=== PATIENT | female | born 1930 | race Caucasian/White ===

== ENCOUNTER → 2016-05-22 | Outpatient (CLI) | payer MEDICARE ==
[~2016-05-22] MED LIST: ACCUNEB 0.0.63 MG/3 INH; AMOXICILLIN500 M1 PO; ASPIRIN81 M1 PO; B COMPLEX1 TA2 PO; COUMADIN5 MG PO; COUMADIN7.5 M1 PO; FAMILY PHARMACY1 TAB PO; GLYBURIDE5 MG PO; HYDRODIURIL25 MG PO; IRON65 M1 PO; JANUVIA100 MG PO; K-DUR 1010 MEQ PO; K-Dur 20MEQ20 MEQ PO; LANOXIN0.125 MG PO; LASIX20 MG PO; LISINOPRIL20 MG PO; METFORMIN500 MG PO; METOPROLOL SR50 MG PO; STOOL SOFTENER100 MG PO; VITAMIN D1000 IU PO; VITAMIN D3400 IU PO
[2016-05-22 09:37] LABS: HEMOGLOBIN A1c 6.9 % (4.8-5.6)
[2016-05-22 09:49] LABS: ALBUMIN 3.6 gm/dl (3.1-4.5); BILIRUBIN, TOTAL 0.5 mg/dl (0.2-1.0); TOTAL PROTEIN 8.2 gm/dL (6.4-8.2)
== END | disposition home or self-care (01) ==
LOC: LAB 09:04
PROVIDERS: Internal Medicine
DX: E11.9 Type 2 diabetes mellitus without complications (principal); R53.83 Other fatigue

== ENCOUNTER → 2016-11-30 | Outpatient (CLI) | payer MEDICARE ==
[2016-11-30 10:37] LABS: ALBUMIN 3.9 gm/dl (3.1-4.5); BILIRUBIN, TOTAL 0.6 mg/dl (0.2-1.0); POTASSIUM 4.1 mmol/L (3.5-5.1); TOTAL PROTEIN 7.7 gm/dL (6.4-8.2)
== END | disposition home or self-care (01) ==
LOC: LAB 09:39
PROVIDERS: Internal Medicine
DX: E11.9 Type 2 diabetes mellitus without complications (principal); R53.83 Other fatigue

== ENCOUNTER 2018-08-26 00:21 | Inpatient (IN) | payer MEDICARE ==
[2018-08-26] VITALS (8 sets, daily range): BP systolic 116–165; BP diastolic 66–104
[~2018-08-26] VITALS: Ht 167.6 cm; Wt 83.5 kg
--- NOTE | ~2018-08-26 | PR ---
[place], [place] PROGRESS NOTE NAME: JUSTINE FUNK [facility] #: [id number] UNIT #: [id number] ROOM: [facility] DOCTOR: MAMADOU RUIZ MD,NATALEE BIRTHDATE: [birth year] DOS: 08/28/2018 PULMONARY PROGRESS NOTE SUBJECTIVE: The patient was noted comfortable at this time without any acute distress this morning of assessment, comfortable, resting on the bed. She has been using the Optiflow oxygen supplementation with nasal cannula, has not been noted any symptoms of fever or chills. No symptoms of coughing or any sputum expectoration. The patient was noted cough as nonproductive with a question of sputum expectoration. No symptoms of abdominal pain, nausea, vomiting, diarrhea, abdominal pain, hematemesis, or melena. Denies symptoms of hematochezia or headache. She has been using the BiPAP intermittently as well. OBJECTIVE: VITAL SIGNS: Normal temperature, respiratory rate 22-30, heart rate of 81-72, blood pressure 113/75 to 109/79. Intake was recorded as 1445 outake 554 mL were recorded. Pulse oxygen saturation recorded on the Optiflow of oxygen as 91-90% saturation. HEENT: Examination shows head was atraumatic. Eyes nonicterus. NECK: Supple. CARDIOVASCULAR: S1, S2 audible. LUNGS: Decreased breaths are noted. Crackles of the lungs bilaterally. ABDOMEN: Soft, flat, nontender, bowel sounds present. EXTREMITIES: Mild edema. MUSCULOSKELETAL: Without any acute deformity. CENTRAL NERVIOUS SYSTEM: Cranial nerves 2-12 intact. LABORATORY DATA: PTT was noted, therapeutic 67.6 this morning. CBC this morning, WBC count 20.2, hemoglobin 9.3, platelet count 343,000. BMP this morning as BUN 34, creatinine 1.51. Remaining electrolytes were normal. The chest x-ray obtain PA and lateral view today for the patient noted increasing pleural fluid noted with pulmonary infiltration in the lungs as compared with previous chest x-rays. IMPRESSION: 1. The patient who has been currently noted with acute respiratory failure remains persistent with hypoxia. 2. The patient's leukocytosis and acute anemia. 3. Fluid overload. Oral debility, weakness noted with elderly age. 4. Non-ST segment elevation myocardial infarction as well. PLAN OF TREATMENT: The patient was ordered a dose of Lasix, use of the BiPAP alternating with the Optiflow of oxygen would be continued. Monitor respiratory status, kidney function. Overall prognosis of the patient remains guarded. Assessment and management of the patient was discussed with patient's daughter. Continuation of current antibiotic, community-acquired pneumonia with changes need to be done. Other additional treatment changes will be ordered based on the progression of the illness. [place], [place] PROGRESS NOTE NAME: [facility] FUNK [facility] #[facility] [id number] UNIT #: [id number] ROOM: [facility] DOCTOR: NATALEE MAYER MD BIRTHDATE: [birth year] NATALEE CEDILLO MD CM:BRADYTRANS [id number] NATALEE RUIZ MD 09/09/18 0750 interface
--- NOTE | ~2018-08-26 | EKG ---
[place], [place] ELECTROCARDIOGRAM REPORT NAME: JUSTINE FUNK UNIT #: [id number] ROOM: [facility] DOCTOR: HEIDE DRAFT REPORT BIRTHDATE: [birth year] [facility] Test Date: 2018-08-26 Test Time: 03:32:49 Pat Name: JUSTINE FUNK Department: Room: 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
--- NOTE | ~2018-08-26 | EKG ---
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
--- NOTE | ~2018-08-26 | PR ---
[place], [place] PROGRESS NOTE NAME: JUSTINE FUNK [facility] #: [id number] UNIT #: [id number] ROOM: [facility]- DOCTOR: RUDY TANG,NII Florian BIRTHDATE: [birth year] DOS: 08/30/2018 SUBJECTIVE: The patient was seen and examined. She was sitting in a chair. She is awake and alert. She was on BiPAP. She remains critically ill. She is in no apparent distress. PHYSICAL EXAMINATION: VITAL SIGNS: Temperature afebrile, pulse 76, respiratory rate 18, blood pressure 111/68. GENERAL: She is awake, critically ill on BiPAP, sitting in a chair. HEENT: Shows no JVD. BiPAP mask is in place. LUNGS: Diminished breath sounds with no wheeze. HEART: S1, S2. No rub, thrill or gallop. ABDOMEN: Soft, nontender. EXTREMITIES: Showed no edema. LABORATORY DATA: Urine culture showed no growth. Hemoglobin 8.8, white count of 20.2, platelets 296. BUN 51, creatinine 1.75, sodium 139, potassium 4.8, CO2 of 24, calcium 8.2. ASSESSMENT AND PLAN: 1. Acute on chronic kidney disease. The patient has a stable creatinine level. 2. Acute kidney injury, likely prerenal. Continue ongoing supportive care. Avoid hypotension. Avoid nephrotoxic agents. Use diuretics as felt needed. Try to achieve a negative fluid balance. 3. Respiratory failure. The patient is on BiPAP. Being managed by Pulmonary. 4. Anemia. Transfuse as needed. Follow H and H. 5. Leukocytosis. The patient is on antibiotics. Follow cultures. 6. Deep venous thrombosis prophylaxis. She is on subcutaneous Lovenox. Suggest subcutaneous heparin in the setting of acute kidney injury. NII GRANT MD CM:PNTRANS [phone] NII GRANT MD 08/30/181651 interface
--- NOTE | ~2018-08-26 | PR ---
[place], [place] PROGRESS NOTE NAME: JUSTINE FUNK [facility] #: [id number] UNIT #: [id number] ROOM: [facility] DOCTOR: MAMADOU RUIZ MD,NATALEE BIRTHDATE: [birth year] DOS: 08/30/2018 PULMONARY PROGRESS NOTE SUBJECTIVE: She has been noted comfortable at this time, sitting on the bed this morning. The oxygen requirement noted decreased partially from yesterday. She was currently noted 60% Optiflow of oxygen supplementation with Venturi system. She has not been noted symptoms of chest pain. Cough has been noted without any sputum expectoration. OBJECTIVE: VITAL SIGNS: Recorded normal temperature, respiratory rate of 20, heart rate of 80, blood pressure of 112/60 at noon, and pulse oxygen 94% saturation noted at bedside. HEENT: Showed no acute change. NECK: Supple. Head was atraumatic. Eyes nonicterus. CARDIOVASCULAR SYSTEM: S1, S2 audible. LUNGS: The patient was noted without any wheezing. Crackles in the lungs were noted. Decreased breaths in the lower portion of the lungs bilaterally. ABDOMEN: Soft, nontender. Bowel sounds present. EXTREMITIES: Without any acute edema. LABORATORY DATA: CBC: WBC count elevated at 20.2, hemoglobin 8.0. BMP; BUN 51, creatinine 1.75. IMPRESSION: Acute pneumonia in combination with congestive heart failure, fluid overload, atrial fibrillation. PLAN OF MANAGEMENT: Continue the current plan of management, antibiotics, bronchodilators, oxygen supplementation and other therapies as in plan. The patient is receiving IV diuretics. Chest x-ray to monitor the patient p.r.n. Titrate Oxygen supplementation to maintain pulse ox 92% or greater. NATALEE CEDILLO MD CM:PNTRANS [phone] NATALEE RUIZ MD 08/30/182301 interface
--- NOTE | ~2018-08-26 | EKG ---
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
--- NOTE | ~2018-08-26 | PR ---
[place], [place] PROGRESS NOTE NAME: JUSTINE FUNK [facility] #: [id number] UNIT #: [id number] ROOM: [facility] DOCTOR: MAMADOU RUIZ MD,NATALEE BIRTHDATE: [birth year] DOS: 09/01/2018 SUBJECTIVE: The patient was noted comfortable on Optiflow oxygen supplementation this morning use. Denies symptoms of fever or chills. Continue Lasix intravenously. There were no symptoms of fever or chills. There was no sputum expectoration. Coughing was noted. PHYSICAL EXAMINATION: VITAL SIGNS: For the patient which were recorded showed normal temperature, respiratory rate 21, heart rate 87, blood pressure 111/79. Pulse oxygen saturation on the Optiflow oxygen of 45% was 95% saturation. HEENT: Head was atraumatic. Eyes nonicterus. NECK: Supple. LUNGS: Decreased breath sounds in the right lower lung. Scattered crackles. ABDOMEN: Soft, nontender. Bowel sounds present. LABORATORY DATA: No new change. CBC: WBC count 17.1. Platelet count was normal. IMPRESSION: Stable respiratory status, gradual resolution of the acute hypoxic respiratory failure with the pleural fluid on the right side and combination of pneumonia, congestive heart failure, and also atrial fibrillation. PLAN OF MANAGEMENT: The long-term acute care facility consultation could be obtained and family members are agreeable for that. In the meantime, continue the therapy, plan of management as in progress. Usual care. NATALEE CEDILLO MD CM:PNTRANS 1014 NATALEE RUIZ MD 09/02/18 005 interface
--- NOTE | ~2018-08-26 | PR ---
[place], [place] PROGRESS NOTE NAME: JUSTINE FUNK [facility] #: [id number] UNIT #: [id number] ROOM: [facility] DOCTOR: MAMADOU RUIZ MD,NATALEE BIRTHDATE: [birth year] DOS: 08/29/2018 PULMONARY PROGRESS NOTE SUBJECTIVE: The patient remains in the hospital. The patient is noted with increased oxygen requirement since yesterday from 50% oxygen, oxygen requirement is noted as 70%. She has been noted with some cough. There is no sputum expectoration. She has not been reported with any symptoms of fever or chills or any hemoptysis. She appears to be comfortable this morning of assessment otherwise, sitting on the bed. She remains afebrile as well. The antibiotic was continued. Denies symptoms of headache, diplopia, or pain of the lower extremity or edema. Remaining systems reviewed, limited but noted negative. OBJECTIVE: VITAL SIGNS: Normal temperature this morning, respirations 22, heart rate 75, blood pressure 111/64. Pulse oxygen saturation was recorded as 95% saturation. HEENT: Examination shows head is atraumatic. Eyes nonicterus. NECK: Supple. CARDIOVASCULAR: S1 and S2 audible. LUNGS: Noted without any wheezing or crackles at the present time. Breaths are noted decreased in lower portion of the lungs bilaterally. ABDOMEN: Soft, nontender. Bowel sounds present. EXTREMITIES: Without any acute edema. LABORATORY DATA: Chest x-ray done this morning was reviewed, bilateral pleural fluid is noted with pulmonary infiltration. LABORATORY DATA: CBC - WBC count 22.2, hemoglobin 9.8, platelet count normal. BMP this morning - BUN 46, creatinine 1.80, glucose 302. IMPRESSION: 1. The patient with acute hypoxic respiratory failure. The patient is still requiring significant amount of oxygen. 2. Leukocytosis as well. 3. Acute pneumonia with bilateral pleural fluid as well. 4. The patient with non-ST segment elevation myocardial infarction as well. PLAN OF MANAGEMENT: Discontinue Solu-Medrol at this time. Continuation of antibiotics and bronchodilators. Monitor any other culture results. Leukocytosis may be induced by the corticosteroids. Titrate the oxygen supplementation, maintain pulse ox at 92% or greater. Other therapy plan of management, care plan. Diuretics will be needed as well. Other additional treatment changes will be done based on the progression of her illness. [place], [place] PROGRESS NOTE NAME: JUSTINE FUNK UNIT #: [id number] ROOM: [facility] DOCTOR: MAMADOU RUIZ MD,NATALEE BIRTHDATE: [birth year] NATALEE CEDILLO MD CM:PNTRANS [id number] NATALEE RUIZ MD 08/30/18 0318 interface
--- NOTE | ~2018-08-26 | PR ---
[place], [place] PROGRESS NOTE NAME: JUSTINE FUNK [facility] #: [id number] UNIT #: [id number] ROOM: [facility] DOCTOR: NATALEE MAYER MD BIRTHDATE: [birth year] DOS: 08/27/2018 PULMONARY PROGRESS NOTE SUBJECTIVE: The patient has been noted comfortable at this time, resting on the bed. She appeared to be quite comfortable, has been using the Optiflow of oxygen, intermittent use of BiPAP, BiPAP has been used significantly yesterday. She has been getting the intravenous therapeutic heparin for the medical management of acute coronary syndrome with non-ST segment elevation myocardial infarction. Denies symptoms of chest pain. The coughing has been noted intermittent with minimal sputum expectoration. Denies symptoms of abdominal pain, nausea, vomiting, diarrhea, hematemesis, or melena. General weakness and fatigue was reported. The family members are present at bedside with the patient. OBJECTIVE: VITAL SIGNS: The vital signs of the patient, which have been recorded this morning shows normal temperature, respiratory rate of 19-18, heart rate of 75-92, blood pressure of 109/66. Pulse oxygen saturation recorded with Optiflow 50% oxygen is 92% and with the BiPAP is 93% saturation. HEENT: Examination shows head was atraumatic. Eyes nonicterus. NECK: Supple. CARDIOVASCULAR SYSTEM: S1, S2 audible. LUNGS: Still noted decreased breath sounds in the lungs bilaterally. Scattered crackles. ABDOMEN: Soft, nontender. Bowel sounds present. EXTREMITIES: No acute change. MUSCULOSKELETAL: Without any acute deformities. CENTRAL NERVOUS SYSTEM: General weakness and fatigue. LABORATORY DATA: BMP today: BUN is 26, creatinine is 1.41, and glucose is 200. The CBC that was done this morning, WBC count of 15.5, hemoglobin of 7.9, hematocrit of 26.1, and platelet count of 314,000. PTT was ranging between 42 and 38. IMPRESSION: 1. The patient has been currently noted severe acute hypoxemic respiratory failure with acute bilateral pneumonia. 2. Non-ST segment elevation myocardial infarction as well. 3. Bilateral pleural fluid as well. 4. Overall debility, multiple other medical problems. 5. The patient with cardiomyopathy, noted left ventricular ejection fraction 35%-40% with yesterday echocardiogram. PLAN OF TREATMENT: Continuation of the antibiotics, bronchodilators, BiPAP use, and intermittent oxygen supplementation during the day. PLAN OF MANAGEMENT: No changes in the plan of care at this time would be recommended. Current plan of management already in progress will be continued. Repeat a chest x-ray in the morning to reassess the progression of the [place], [place] PROGRESS NOTE NAME: JUSTINE FUNK [facility] #: [id number] UNIT #: [id number] ROOM: [facility] DOCTOR: NATALEE MAYER MD BIRTHDATE: [birth year] respiratory status. Usual care, other supportive plan of management, care plan and treatment, and other therapies. Usual medical management as previously in progress. NATALEE CEDILLO MD CM:PNTRANS [phone] NATALEE RUIZ MD 09/09/18 0748 interface
--- NOTE | ~2018-08-26 | PR ---
[place], [place] PROGRESS NOTE NAME: JUSTINE FUNK [facility] #: [id number] UNIT #: [id number] ROOM: [facility] DOCTOR: MAMADOU RUIZ MD,NATALEE BIRTHDATE: [birth year] DOS: 08/31/2018 SUBJECTIVE: The patient has been noted comfortable at this time, resting comfortably in the bed, using oxygen supplementation nasal cannula. Denies symptoms of fever or chills. Coughing has been reported without any sputum expectoration. Denies symptoms of fever or chills. Denies symptoms of hemoptysis. Denies pain of the lower extremities, hematemesis, melena, or hematochezia. Remaining systems were reviewed, they were noted all negative. PHYSICAL EXAMINATION: VITAL SIGNS: The patient has normal temperature, respiratory rate of 20-16, heart rate 90-85, and blood pressure 94/70 to 98/59. Pulse oxygen saturation recorded on 12 liter nasal cannula 95% saturation with the BiPAP 70% oxygen 97% saturation. HEENT: Examination shows head was atraumatic. Eyes nonicterus. NECK: Supple. CARDIOVASCULAR: S1, S2 is audible. LUNGS: The patient was noted without any wheezing or crackles. Breaths are noted, decreased in the lungs bilaterally. ABDOMEN: Soft, nontender. Bowel sounds present. EXTREMITIES: No new change. MUSCULOSKELETAL: Without acute deformities. CENTRAL NERVOUS SYSTEM: Cranial nerves 2-12 intact. MUSCULOSKELETAL: Without any acute deformities. LABORATORY DATA: Blood culture, which were done on 08/26/2018, reported no bacterial growth. CMP this morning, BUN 51, creatinine 1.79, glucose 126. Remaining electrolytes were normal. CBC this morning, WBC count of 17.4, hemoglobin 9.0, hematocrit 30.8, and platelet count 154,000. Ultrasound of the chest was also performed at the bedside noted with small moderate right pleural fluid and there were no pleural fluid noted on the left side. IMPRESSION: 1. The patient with acute congestive heart failure with ongoing pleural fluid gradually resolving. 2. Acute pneumonia with gradual improvement. 3. Severe acute hypoxemic respiratory failure noted stable. 4. Debility. 5. Acute kidney injury. PLAN: Continue diuretic, bronchodilators, oxygen supplementation. Observation of pleural fluid. No intervention will be needed. Continuation of other therapy, plan of management. Usual care. No changes in antibiotic will be necessary. Other supportive plan of management as in progress will be continued. Other additional treatment changes will be ordered based on the progression of the illness. [place], [place] PROGRESS NOTE NAME: JUSTINE FUNK [facility] UNIT #: [id number] ROOM: [facility] DOCTOR: NATALEE MAYER MD BIRTHDATE: [birth year] NATALEE CEDILLO MD CM:PNTRANS [phone] NATALEE RUIZ MD 09/01/18207 interface
--- NOTE | ~2018-08-26 | CON ---
[place], [place] REPORT OF CONSULTATION NAME: JUSTINE FUNK [facility] #: [id number] UNIT #: [id number] ROOM: [facility] DOCTOR: NATALEE MAYER MD BIRTHDATE: [birth year] DOS: 08/26/2018 PULMONARY CONSULTATION, EVALUATION, AND MANAGEMENT CONSULTATION REQUESTED BY: Hospitalist service. REASON FOR CONSULTATION: For assessment of acute respiratory failure. HISTORY OF PRESENT ILLNESS: This is an 88-year-old white female, who has been admitted to the hospital under the care of the hospitalist on 08/26/2018. The patient was brought to the hospital. The patient has been noted with symptoms of progressive symptoms of shortness of breath, general weakness, and fatigue. The symptoms have been noted gradually progressive and also noted with hypoxia per daughter, who assisted in the history of the patient since the patient is unable to give me any history. She has been noted with gradual increase in shortness of breath occurring at home. She has been using oxygen supplementation 2 liters by nasal cannula with the usual use of oxygen supplementation for past 3 years, but the pulse oxygen saturation was dropping per daughter. She was checking pulse ox at home. She has increased the oxygen supplementation to 4 liters nasal cannula. She has been noted further decline of the pulse oxygen saturation on 4 liters of oxygen supplementation, prompted the patient to come to the hospital for further assessment. She has been seen in the hospital, noted with acute hypoxic respiratory failure and being admitted to the hospital for further management. She has been starting the BiPAP that has been continued, requiring high amount of FiO2 supplementation up to 80% of oxygen. Chest x-ray was suggestive of possibility of congestive heart failure, pneumonia, and pleural effusions. This morning as the patient was seen in the Intensive Care Unit, she has been still noted tachypnea even with use of the BiPAP that has been continued this morning. She has not reported any symptoms of coughing, hemoptysis, or chest pain per daughter. PAST MEDICAL HISTORY: Documented on this admission: 1. Known history of chronic hypoxic respiratory failure. 2. Permanent atrial fibrillation. 3. Type 2 diabetes mellitus. 4. Essential hypertension. PAST SURGICAL HISTORY: Noted with: 1. Breast biopsy, which is benign. 2. Cholecystectomy. 3. Hysterectomy. HOME MEDICATIONS: Listed for this patient as: 1. Norvasc. 2. Aspirin. 3. Vitamin D. 4. Colace. 5. Lasix 20 mg daily. 6. Iron polysaccharide. 7. Lisinopril 20 mg daily. [place], [place] REPORT OF CONSULTATION NAME: JUSTINE FUNK UNIT #: [id number] ROOM: [facility] DOCTOR: MAMADOU RUIZ MD,NATALEE BIRTHDATE: [birth year] 8. Metformin 500 mg t.i.d. 9. Metoprolol succinate 50 mg p.o. b.i.d. 10. Multivitamin 1 p.o. daily. 11. Vitamin B complex. CURRENT MEDICATIONS: Current medications which has been administered on this admission were noted as metoprolol succinate orally, sliding insulin coverage, Imdur, multivitamin, vitamin D, aspirin, Mucinex, Solu-Medrol 40 mg IV b.i.d., heparin IV for the coronary artery syndrome, Zithromax, IV Rocephin as well as some other p.r.n. medications. DRUG ALLERGIES: No known drug allergies. SOCIAL HISTORY: The patient lives at home, currently . There was no past tobacco, alcohol, or illicit drug use. FAMILY HISTORY: The patient's father at age of 82 from complication of myocardial infarction. Mother at age of 82 from complication of atrial fibrillation and diabetes mellitus. REVIEW OF SYSTEMS: Much of the history could not be obtained since the patient is unable to give me any history. Per daughter, the patient has been reported general weakness, fatigue, inability to perform activities of daily living. PHYSICAL EXAMINATION: GENERAL: The patient is an 88-year-old elderly female patient, who has been currently noted on the BiPAP without any acute major distress except some tachypnea. VITAL SIGNS: The patient's height was recorded by the nursing staff as height of 5 feet 6 inches, weight of 174 pounds, and BMI of 28. Vital signs of the patient, which were recorded, temperature recorded as normal. The respiratory rate is 29, highest and lowest of 15, heart rate 84-103 with atrial fibrillation, blood pressure is 119/78-122/83. Pulse oxygen saturation on 80% oxygen is 96% saturation. HEENT: Head was atraumatic. Eyes nonicterus. NECK: Supple. CARDIOVASCULAR SYSTEM: S1, S2 is audible. LUNGS: Noted crackles at lung bases without any wheezing. ABDOMEN: Soft, nontender. Bowel sounds present. EXTREMITIES: Noted with no significant edema. MUSCULOSKELETAL: Without any acute deformity. CENTRAL NERVOUS SYSTEM: At this time, the patient was noted on the BiPAP, was not reported any focal neurologic deficit. Further examination and assessment could not be performed. LABORATORY DATA: Lactic acid on admission was 4.8, followup 2.2. The PT and PTT of the patient noted as normal PT and PTT. CBC on admission, WBC count is 13.8, hemoglobin is 9.8, and platelet count is 408,000. The CMP of the patient on admission, BUN is 17, creatinine is 1.37, glucose is 252, and sodium is 135. Remaining LFTs normal. Troponin was noted elevated at 0.52, second troponin is [place], [place] REPORT OF CONSULTATION NAME: JUSTINE FUNK UNIT #: [id number] ROOM: [facility] DOCTOR: NATALEE MAYER MD BIRTHDATE: [birth year] 0.[birth year] this morning at 06:00. The BMP of the patient, which was repeated this morning, BUN is 19, creatinine is 1.21, and glucose is 165. Arterial blood gas that was done on 08/26/2018, pH of 7.40, pCO2 of 44, and pO2 of 78 on 70% of oxygen. IMAGING DATA: The chest x-ray was noted with pleural fluid with basilar area of infiltration as well. Pleural fluid noted, greater on the right than the left side. CT scan of the chest that was done on 08/26/2018 shows small bilateral pleural fluid with some interstitial edema, infiltration, consolidation noted in lower lungs, air bronchogram including involvement of the lingula and the right middle lobe as well. IMPRESSION: 1. The patient has been currently admitted to the hospital with severe chronic hypoxic respiratory failure as a result of acute bilateral pneumonia, whether viral or bacterial at this time consideration will be done. The patient was also noted with acute sepsis related to that. Acute kidney injury related to that. 2. Uncontrolled hyperglycemia secondary to sepsis as well with history of type 2 diabetes mellitus. Weakness and fatigue with some change in mental status, related to all of the above. 3. The patient with abnormal troponin secondary to demand ischemia, rule out acute myocardial infarction as well. Non-ST segment elevation myocardial infarction would be considered. PLAN OF MANAGEMENT: The patient will be continue with current antibiotics at the present time with use of the Rocephin 2 gram IV daily and Zithromax for the Intensive Care Unit management coverage. Monitor culture results. Avoid any excessive fluid to prevent the fluid overload and/or congestive heart failure. BiPAP to be continued for the next 24 hours. The code status has been re-discussed with the patient's daughter. The patient remain Do Not Intubate and DNR Comfort Care-Arrest as well. There was no need of vasopressors at this time. Other therapy, plan of management, care plan, and additional treatment changes will be recommended based on progression of illness. Overall, prognosis remains guarded. Monitoring all of the other symptoms as well with other supportive plan of management and care. Thank you for allowing me to participate in the care of this patient. [place], [place] REPORT OF CONSULTATION NAME: JUSTINE FUNK Elizabeth UNIT #: [id number] ROOM: [facility] DOCTOR: NATALEE MAYER MD BIRTHDATE: [birth year] NATALEE CEDILLO MD CM:CONSTR:REPORT OF CONSULTATION 1610 09/09/18 0745 interface
[~2018-08-26 00:21] MED LIST changes: +DUOFER 28 MG TA28 MG PO; -IRON65 M1 PO; -VITAMIN D1000 IU PO; +VITAMIN D5000 UNIT PO
[2018-08-26 00:39] LABS: BASO # 0.1 10*3/uL (0.0-0.1); BASO % 0.4 % (0.0-1.0); EOS # 0.2 10*3/uL (0.0-0.4); EOS % 1.6 % (1.0-4.0); HEMATOCRIT 31.7 % (37.0-47.0); HEMOGLOBIN 9.8 g/dl (12.0-16.0); LYMPH # 3.1 10*3/uL (1.3-4.4); LYMPH % 22.7 % (27.0-41.0); MEAN CELL VOLUME 94.9 fl (81.0-99.0); MEAN CORPUSCULAR HGB 29.3 pg (27.0-31.0); MEAN CORPUSCULAR HGB CONC 30.9 g/dl (33.0-37.0); MEAN PLATELET VOLUME 9.9 fl (9.6-12.3); MONO % 7.3 % (3.0-9.0); NEUT # 9.3 10*3/uL (2.3-7.9); NEUT % 67.1 % (47.0-73.0); PLATELET COUNT AUTOMATED 408 10*3/uL (130-400); RED BLOOD COUNT 3.34 10*6/uL (4.10-5.10); RED CELL DISTRI WIDTH 16.3 % (0-14.5); WHITE BLOOD COUNT 13.8 10*3/uL (4.8-10.8)
--- NOTE | 2018-08-26 00:41 | NUR ---
DR. SHERIDAN NOTIFIED OF CRITICAL LACTIC ACID OF 4.8
[2018-08-26 00:51] LABS: ACT PARTIAL THROMBO TIME 27.1 SECONDS (20.8-31.5)
[2018-08-26 00:56] LABS: ALBUMIN 3.5 gm/dl (3.1-4.5); CREATININE 1.37 mg/dL (0.55-1.02); POTASSIUM 3.8 mmol/L (3.5-5.1)
[2018-08-26 00:57] LABS: TROPONIN I 0.02 ng/ml (<0.045)
[2018-08-26] MEDS ORDERED: AMLODIPINE BESY10 MG PO (01:09)
--- NOTE | 2018-08-26 03:11 | NUR ---
TROPONIN 0.052, DR SHERIDAN AWARE
--- NOTE | 2018-08-26 04:45 | NUR ---
A 88, admitted to ICCU, under the services of SPENCER Patterson DO with a diagnosis of CHF, SEPSIS. Chief complaint is SHORTNESS OF BREATH. Patient arrived via stretcher from ER. Monitor applied. Initial assessment completed. Vital signs taken and recorded. SPENCER PATTERSON DO notified of admission to the unit. Orders received. See assessment for past medical history, medications and allergies. Patient and/or family oriented to unit. [facility]U visitation policy reviewed. Clothing/patient valuable form completed. YULI HERNANDEZ
--- NOTE | 2018-08-26 05:07 | NUR ---
HOME MEDICATIONS UP TO DSATE PER LIST SENT WITH PATIENT AND FAMILY.
[2018-08-26 06:21] LABS: BASO % 0.2 % (0.0-1.0); EOS % 0.2 % (1.0-4.0); HEMATOCRIT 28.2 % (37.0-47.0); HEMOGLOBIN 8.7 g/dl (12.0-16.0); LYMPH # 0.9 10*3/uL (1.3-4.4); LYMPH % 7.2 % (27.0-41.0); MEAN CELL VOLUME 92.5 fl (81.0-99.0); MEAN CORPUSCULAR HGB 28.5 pg (27.0-31.0); MEAN CORPUSCULAR HGB CONC 30.9 g/dl (33.0-37.0); MONO # 0.3 10*3/uL (0.1-1.0); MONO % 2.2 % (3.0-9.0); NEUT # 11.6 10*3/uL (2.3-7.9); NEUT % 89.7 % (47.0-73.0); PLATELET COUNT AUTOMATED 342 10*3/uL (130-400); RED BLOOD COUNT 3.05 10*6/uL (4.10-5.10); RED CELL DISTRI WIDTH 16.2 % (0-14.5); WHITE BLOOD COUNT 12.9 10*3/uL (4.8-10.8)
[2018-08-26 06:49] LABS: CREATININE 1.21 mg/dL (0.55-1.02); POTASSIUM 3.9 mmol/L (3.5-5.1)
--- NOTE | 2018-08-26 06:58 | NUR ---
DR. LEIGH ANSWERING SERVICE NOTIFIED OF CONSULT. YULI HERNANDEZ RN
[2018-08-26 07:23] LABS: ABG BASE EXCESS 2.7 mmol/L (-2.0-2.0); ABG HCO3 27.4 mmol/l (22-26); ABG O2 SATURATION 95.8 % (95-97); ARTERIAL BLOOD GAS PCO2 44.6 mmHg (35-45); ARTERIAL BLOOD GAS PH 7.402 (7.35-7.45); ARTERIAL BLOOD GAS PO2 78.6 mmHg (80-90)
--- NOTE | 2018-08-26 07:23 | NUR ---
PT ON BIPAP AT THIS TIME. ABG DRAWN
--- NOTE | 2018-08-26 09:16 | NUR ---
0800 Drowsy, Dr. Armendariz in . Dr. Sánchez was notified of consult and ABG result. Remains on bi-pap at this time. 0900 Trialed on NC , unsuccessful w/ de-sat to 78% . Replaced to Bi-Pap. Dr. Awad here Heparin gtt started per order. Second IV added for abx and IVF.
--- NOTE | 2018-08-26 09:48 | NUR ---
PT ON BIPAP. TITRATED FIO2 TO 60%
--- NOTE | 2018-08-26 10:21 | NUR ---
Dr. aCrbajal in to [facility]. aware of elevated troponin.
--- NOTE | 2018-08-26 12:49 | NUR ---
PT REMAINS ON BIPAP AT THIS TIME
--- NOTE | 2018-08-26 14:01 | NUR ---
IVF dc'd . Dr. Sánchez in and recommendation is to remain on Bi-Pap. He spoke at length w/ pt. and family as to intubation and prognosis. Family agreeable to Maintain CCA w/ no ETT. lunch ordered.
--- NOTE | 2018-08-26 16:10 | NUR ---
took pt off bipap and placed on optiflow at 70Lm and fio2 60%. spo2 97% titrated to 60% fio2, spo2 95%
--- NOTE | 2018-08-26 17:03 | NUR ---
Awake and alert. Familyin to visit. took moderate amt lunch. declines dinner at this time.
--- NOTE | 2018-08-26 17:40 | NUR ---
TITRATED OPTIFLOW TO 50% AND 55LM. SPO2 95%
--- NOTE | 2018-08-26 19:36 | NUR ---
PT. HAS NOT PRODUCED ANY URINE SINCE ADMISSION. BLADDER SCANNED FOR 508CC'S OF URINE IN BLADDER DR. GALVAN NOTIFIED, ORDERS RECEIVED TO STRAIGHT CATH FOR URINE. STRAIGHT CATHED FOR 550CC'S OF DARK YELLOW URINE. WILL CONTINUE TO MONITOR.
--- NOTE | 2018-08-26 19:38 | NUR ---
PT'S HEP LOCKS IN LW AND DEMAR ASYMPT. HEPARIN DRIP CONTINUES VIA DEMAR LUNGS CLEAR BUT DIMINISHED BILAT, PULSE OX 93% ON 55L HI FLOW 02. ABDOMEN SOFT NONDISTENDED AND NORMO. NO PERIPHERAL EDEMA NOTED. RESP. EASY AND REG, NO DISTRESS. YULI HERNANDEZ RN
--- NOTE | 2018-08-26 19:41 | NUR ---
RIGHT EYE REDDENED, NOTED.
[2018-08-26 19:43] LABS: BILIRUBIN NEGATIVE (NEGATIVE); BLOOD NEGATIVE (NEGATIVE); CLARITY CLEAR (CLEAR); COLOR YELLOW (YELLOW); GLUCOSE 2+ (NEGATIVE); KETONE NEGATIVE (NEGATIVE); LEUKO ESTERASE TRACE (NEGATIVE); NITRITE POSITIVE (NEGATIVE); PH 5.5 (5.0-9.0); UROBILINOGEN 0.2 E.U./dl (0.2-1.0)
[2018-08-26 20:30] LABS: BACTERIA 1+; COARSE GRANULAR CAST 0-2; WBC 21-30 wbc/hpf (0-5)
--- NOTE | 2018-08-26 22:21 | NUR ---
PT. GIVEN RESTORIL ORDERED TO ASSIST WITH SLEEP PER PT REQUEST. PT. CURRENTLY SLEEPING ,RESTORIL EFFECTIVE.
[2018-08-27] VITALS: BP 115/73
[2018-08-27 04:00] VITALS: BP 116/73
[2018-08-27 04:22] LABS: BASO % 0.3 % (0.0-1.0); HEMATOCRIT 26.1 % (37.0-47.0); HEMOGLOBIN 7.9 g/dl (12.0-16.0); LYMPH # 1.4 10*3/uL (1.3-4.4); LYMPH % 9.1 % (27.0-41.0); MEAN CELL VOLUME 94.6 fl (81.0-99.0); MEAN CORPUSCULAR HGB 28.6 pg (27.0-31.0); MEAN CORPUSCULAR HGB CONC 30.3 g/dl (33.0-37.0); MEAN PLATELET VOLUME 10.5 fl (9.6-12.3); MONO # 0.6 10*3/uL (0.1-1.0); MONO % 3.7 % (3.0-9.0); NEUT # 13.3 10*3/uL (2.3-7.9); NEUT % 86.2 % (47.0-73.0); PLATELET COUNT AUTOMATED 314 10*3/uL (130-400); RED BLOOD COUNT 2.76 10*6/uL (4.10-5.10); RED CELL DISTRI WIDTH 16.4 % (0-14.5); WHITE BLOOD COUNT 15.5 10*3/uL (4.8-10.8)
[2018-08-27 04:35] LABS: CREATININE 1.41 mg/dL (0.55-1.02); POTASSIUM 4.4 mmol/L (3.5-5.1)
[2018-08-27 08:00] VITALS: BP 109/66
--- NOTE | 2018-08-27 08:00 | NUR ---
RESTING IN BED. DENIES ANY COMPLAINTS. HEPARIN GTT INFUSING AT 16 UNITS/12.6CC/HR. REMAINS ON OPTIFLOW AT 50% FIO2. LUNGS DIMINISHED BILATERALLY.
--- NOTE | 2018-08-27 11:30 | NUR ---
Fashion Design Professor in to talk to patient. Patient states lives at home alone with her family checking in on her. There are 12 basement steps and 3 steps in the home. Physician: Ellen Carbajal Pharmacy: [facility] Home health services: [facility] RN/PT currently and would like to continue those services upon discharge Patient's level of ADLs: MINIMAL ASSIST Patient has working utilities: yes DME: walker, cane Follow-up physician's appointment after d/c: will ne made by the hospitalist nurse director upon discharge Does patient want to access PORTAL?: no Discharge plan discussed with patient. She lives at home alone with her family checking in on her. She is independent in her ADLs and uses a walker or a cane for ambulation. Discussed home health care services and she currently has OV RN/PT and would like to resume those services upon discharge. When medically stable she will be discharged to home with the resumption of her [facility] services. HARLEY CABA
[2018-08-27 12:00] VITALS: BP 120/81
--- NOTE | 2018-08-27 14:32 | NUR ---
MEDICATED WITH 2 TYLENOL FOR COMPLAINTS OF A HEADACHE
--- NOTE | 2018-08-27 15:45 | NUR ---
1517 PLACED PATIENT ON BIPAP
[2018-08-27 16:00] VITALS: BP 107/89
--- NOTE | 2018-08-27 19:27 | NUR ---
SUPPORTIVE DAUGHTER AT BEDSIDE.
[2018-08-27 20:00] VITALS: BP 109/79
--- NOTE | 2018-08-27 20:00 | NUR ---
PT CHECKED FOR INCONTINENCE AND WAS INCONTINENT FOR MODERATE AMT OF URINE. YAIMA CARE DONE AND PT REPOSITIONED. HOB ELEVATED. BIPAP PLACED ON PT WITH PREVIOUS SETTINGS CONFIRMED OF 04/03 55% O2.
--- NOTE | 2018-08-27 21:11 | NUR ---
PT DOZING WHILE ON BIPAP.
--- NOTE | 2018-08-27 22:38 | NUR ---
PT TAKING PO MEDICATIONS AFTER RETURNED TO OPTIFLOW 65% O2. PULSE OX 97%.
[2018-08-28] VITALS: BP 129/84
--- NOTE | 2018-08-28 00:04 | NUR ---
RESTORIL GIVEN AT 2200 FOR SLEEP APPEARS TO BE EFFECTIVE. PT WITH BIPAP ON, PULSE OX 93%, EYES CLOSED, BODY RELAXED. HOB ELEVATED.
--- NOTE | 2018-08-28 02:51 | NUR ---
PT SLEEPING ON HER RT SIDE. BIPAP INTACT.
[2018-08-28 04:00] VITALS: BP 118/82
--- NOTE | 2018-08-28 04:17 | NUR ---
PT INCONTINENT OF LG AMT OF URINE. COMPLETE BATH AND BED LINEN CHANGE. REMAINS ON BIPAP.
[2018-08-28 04:47] LABS: BASO % 0.1 % (0.0-1.0); HEMOGLOBIN 9.3 g/dl (12.0-16.0); LYMPH # 2.8 10*3/uL (1.3-4.4); MEAN CELL VOLUME 95.7 fl (81.0-99.0); MEAN CORPUSCULAR HGB 28.7 pg (27.0-31.0); MEAN PLATELET VOLUME 10.8 fl (9.6-12.3); MONO # 1.2 10*3/uL (0.1-1.0); MONO % 5.9 % (3.0-9.0); NEUT # 15.9 10*3/uL (2.3-7.9); NEUT % 78.9 % (47.0-73.0); PLATELET COUNT AUTOMATED 343 10*3/uL (130-400); RED BLOOD COUNT 3.24 10*6/uL (4.10-5.10); RED CELL DISTRI WIDTH 16.4 % (0-14.5); WHITE BLOOD COUNT 20.2 10*3/uL (4.8-10.8)
[2018-08-28 05:02] LABS: CREATININE 1.51 mg/dL (0.55-1.02); POTASSIUM 4.9 mmol/L (3.5-5.1)
--- NOTE | 2018-08-28 06:54 | NUR ---
PT.IS RESTING QUIETLY, OPTIFLOW ON AT 70% WITH FLOW OF 55%, PULSE OX 92, HEART RATE 71.
[2018-08-28 08:00] VITALS: BP 113/75
--- NOTE | 2018-08-28 08:30 | NUR ---
Carpet Installation Specialist in to see patient. Discussed home hospital bed. Notified hospitalist nurse director of need for hospital bed documentation in a progress note. When medically stable she will be discharged to home with the resumption of her [facility] services.
--- NOTE | 2018-08-28 09:13 | NUR ---
PT. WAS ON A NRB AT 15 LITERS. PULSE OX WAS 92 TO 94%. PT. PLACED ON HIGH FLOW NC AT 15 LITERS TO EAT BREAKFAST, PULSE OX 90%, PT PULSE OX DECREASING TO 82% IN APPRX. 15 MINUTES. PT. PLACED ON OPTI FLOW AT 65% FIO2 AND 55 FLOW. PULSE OX 92 TO 94%. RN AT BEDSIDE FOR THIS CHANGE IN O2.
[2018-08-28 12:00] VITALS: BP 111/74
[2018-08-28 16:00] VITALS: BP 111/76
--- NOTE | 2018-08-28 19:12 | NUR ---
24 HR chart check completed.
[2018-08-28 20:00] VITALS: BP 118/73
--- NOTE | 2018-08-28 21:30 | NUR ---
PATIENT GIVEN RESTORIL TO HELP SLEEP WHILE ON BIPAP. WILL MONITOR AND REASSESS.
--- NOTE | 2018-08-28 23:30 | NUR ---
Patient placed on BiPAP 04/03, back up rate 8 Fio2 55%
[2018-08-29] VITALS: BP 118/78
--- NOTE | 2018-08-29 02:25 | NUR ---
PATIENT RESTING ON BIPAP, NO SIGNS OF DISTRESS. RESTORIL EFFECTIVE FOR SLEEP.
[2018-08-29 04:00] VITALS: BP 116/78; BP 117/68
--- NOTE | 2018-08-29 04:40 | NUR ---
PATIENT WEARING BIPAP, MOANING STATES SHE HAVE AB PAIN, FEELS LIKE SHE NEEDS TO HAVE A BM. SHE STATED SHE HAD A SMALL ONE YESTERDAY. PATIENT IN TEARS OF PAIN, PULLED MOM TO GIVEN, THEN PATIENT STATED SHE WAS NAUSEATED AND NEEDED TO VOMIT. NO MOM GIVEN. ZOFRAN GIVEN. PATIENT WANTING HER DAUGHTER, STATES SHE HAVING TOO MUCH PAIN AND ISNT GOING TO MAKE IT. DR. ANTONIO NOTIFIED, PATIENTS DAUGHTER CALLED, SHE WILL BE IN. DR'S ON THERE WAY TO UNIT. PATIENT VERY PALE, DIAPHORETIC. VS 120/68, HR 90, 40-RESP, 94% TEMP 97.0 T.
--- NOTE | 2018-08-29 04:53 | NUR ---
Patient placed back on Opti Flow at 55 L/M at 70% HR 85 SpO2 92%.
--- NOTE | 2018-08-29 05:22 | NUR ---
MORPHINE GIVEN FOR PAIN. WILL MONITOR.
[2018-08-29 05:37] LABS: CREATININE 1.8 mg/dL (0.55-1.02); POTASSIUM 4.7 mmol/L (3.5-5.1)
--- NOTE | 2018-08-29 06:22 | NUR ---
PATIENT DENIES PAIN AT THIS TIME, STATES SHE FEELS VERY WEAK. PATIENT INCONT OF LG AMT OF URINE, DULCOLAX SUPP GIVEN TO SERVICENOW ADMINISTRATOR IN BM. FAMILY AT BED SIDE.
[2018-08-29 06:38] LABS: HEMATOCRIT 33.2 % (37.0-47.0); HEMOGLOBIN 9.8 g/dl (12.0-16.0); MEAN CORPUSCULAR HGB 29.2 pg (27.0-31.0); MEAN CORPUSCULAR HGB CONC 29.5 g/dl (33.0-37.0); NUCLEATED RED BLOOD CELL 0.2 % (0.0-0.0); PLATELET COUNT AUTOMATED 352 10*3/uL (130-400); RED BLOOD COUNT 3.36 10*6/uL (4.10-5.10); RED CELL DISTRI WIDTH 16.8 % (0-14.5); WHITE BLOOD COUNT 22.2 10*3/uL (4.8-10.8)
[2018-08-29 06:42] LABS: MEAN CELL VOLUME 98.8 fl (81.0-99.0)
[2018-08-29 07:23] LABS: ACANTHOCYTES FEW; PLATELET SUFFICIENCY NORMAL (NORMAL); TOTAL CELLS COUNTED 100 #CELLS
--- NOTE | 2018-08-29 07:36 | NUR ---
PATIENT HAD LARGE BM. DULCOLAX EFFECTIVE.
[2018-08-29 08:00] VITALS: BP 111/64
--- NOTE | 2018-08-29 08:00 | NUR ---
ALERT AND ORIENTED, ON BEDPAN, RESP EASY AT REST, ON OPTIFLO NC FLUID BOLUS FROM NIGHTS HAS FINISHED, PT HAD MODERATE BM
--- NOTE | 2018-08-29 08:45 | NUR ---
DR CEDILLO IN TO SEE PT, REPEAT CXR DONE
--- NOTE | 2018-08-29 10:24 | NUR ---
DR PORRAS HAS BEEN UPDATED ON BOTH ELEVATED LACTIC ACID
--- NOTE | 2018-08-29 11:00 | NUR ---
Spoke to Reema at [facility] regarding hospital bed. Hospital bed is ready to be delivered is there anyone home to meet the haulpak driver. Informed patient lives alone but has family that checks in on her. Informed of unknown discharge. [facility] doesn't deliver on the weekends. Reema to call daughter, Kamla, and ask about delivery time.
--- NOTE | 2018-08-29 11:00 | NUR ---
BACK ON BIPAP, POX DROPPING TO 86-89 WHILE SLEEPING
--- NOTE | 2018-08-29 11:30 | NUR ---
Spoke to daughter, Kamla, regarding hospital bed delivery. Daughter would like to wait until Saturday. Reema at [facility] notified.
--- NOTE | 2018-08-29 11:39 | NUR ---
Faxed hospital bed documentation to [facility] at [phone].
--- NOTE | 2018-08-29 11:51 | NUR ---
Faxed resume home health care services to [facility].
[2018-08-29 12:00] VITALS: BP 120/68
[2018-08-29 12:07] LABS: BILIRUBIN NEGATIVE (NEGATIVE); BLOOD NEGATIVE (NEGATIVE); CLARITY SL CLOUDY (CLEAR); COLOR YELLOW (YELLOW); GLUCOSE NEGATIVE (NEGATIVE); KETONE NEGATIVE (NEGATIVE); LEUKO ESTERASE NEGATIVE (NEGATIVE); NITRITE NEGATIVE (NEGATIVE); PH 5.5 (5.0-9.0); SPECIFIC GRAVITY 1.025 (1.005-1.030); UROBILINOGEN 0.2 E.U./dl (0.2-1.0)
--- NOTE | 2018-08-29 12:09 | NUR ---
OLIEVIRA INSERTED PER POLICY UPON RENALS ORDER,TOLERATED WELL ALL URINE SPECIMEN SENT
[2018-08-29 13:20] LABS: URINE CHLORIDE, RANDOM < 10 mmol/L
[2018-08-29 13:26] LABS: BACTERIA 2+; FINE GRANULAR CAST 0-3
[2018-08-29 16:00] VITALS: BP 113/75
--- NOTE | 2018-08-29 18:59 | NUR ---
CHART CHECK COMPLETE.
[2018-08-29 20:00] VITALS: BP 106/73
--- NOTE | 2018-08-29 21:16 | NUR ---
PT'S DAUGHTER HAS GONE HOME. SHE IS NOW DOZING. PULSE OX REMAINS 93-95%.
--- NOTE | 2018-08-29 22:46 | NUR ---
RESTORIL GIVEN AT 2130 EFFECTIVE. PT SLEEPING.
--- NOTE | 2018-08-29 23:26 | NUR ---
Patient refuses NIV at this time
[2018-08-30] VITALS: BP 122/83
[2018-08-30 04:00] VITALS: BP 126/74
[2018-08-30 04:43] LABS: HEMATOCRIT 29.2 % (37.0-47.0); HEMOGLOBIN 8.8 g/dl (12.0-16.0); MEAN CORPUSCULAR HGB 28.9 pg (27.0-31.0); MEAN CORPUSCULAR HGB CONC 30.1 g/dl (33.0-37.0); MEAN PLATELET VOLUME 10.6 fl (9.6-12.3); NUCLEATED RED BLOOD CELL 0.2 10*3/uL (0.0-0.0); NUCLEATED RED BLOOD CELL 0.9 % (0.0-0.0); PLATELET COUNT AUTOMATED 296 10*3/uL (130-400); RED BLOOD COUNT 3.05 10*6/uL (4.10-5.10); RED CELL DISTRI WIDTH 16.5 % (0-14.5); WHITE BLOOD COUNT 20.2 10*3/uL (4.8-10.8)
[2018-08-30 04:44] LABS: MEAN CELL VOLUME 95.7 fl (81.0-99.0)
[2018-08-30 05:07] LABS: CREATININE 1.75 mg/dL (0.55-1.02); POTASSIUM 4.8 mmol/L (3.5-5.1)
[2018-08-30 05:15] LABS: PLATELET SUFFICIENCY NORMAL (NORMAL); POLYCHROMASIA SLIGHT; TOTAL CELLS COUNTED 100 #CELLS
--- NOTE | 2018-08-30 05:40 | NUR ---
PATIENT MOANING STATING HER BELLY HURTS AND SHE FEELS NAUSOUS ZOFRAN THEM GIVEN. I REMOVED A NORCO AND DULCOLAX FOR THE PAIN AND TO HELP HER HAVE BM AND SHE STATED THAT SHE NEEDED SOMETHING MORE THAT SHE CAN NOT SWALLOW PILLS RIGHT NOW. CALLED DOCTOR SUKHJINDER SAID HE WOULD PUT SOMETHING IN FOR HER.
[2018-08-30 08:00] VITALS: BP 111/68
--- NOTE | 2018-08-30 08:00 | NUR ---
PLACED UP INTO CHAIR WITH ASSIST TIMES TWO. LUNGS CLEAR BILATERALLY. NO EDEMA NOTED. PULSE OX 90-91% ON OPTIFLOW 60%. A-FIB ON HEART MONITOR, HR 90'S. OLIVEIRA CATHETER DRAINING CLEAR YELLOW URINE. BP 111/68. AFEBRILE
--- NOTE | 2018-08-30 10:30 | NUR ---
PLACED ON BI-PAP PER ORDER. REMAINS UP IN CHAIR
[2018-08-30 12:00] VITALS: BP 112/60
--- NOTE | 2018-08-30 12:35 | NUR ---
PATIENT TAKEN OFF OF BI-PAP, PLACED ON OPTI-FLOW @ 60%.
--- NOTE | 2018-08-30 13:36 | NUR ---
DR. CEDILLO HERE TO SEE PATIENT
[2018-08-30 16:00] VITALS: BP 115/68
--- NOTE | 2018-08-30 18:54 | NUR ---
CHART CHECK COMPLETE.
--- NOTE | 2018-08-30 19:12 | NUR ---
PT. REFUSED AERO. TX AND BIPAP, STATE SHE IS HAVING ALOT OF STOMACH PAIN AND JUST DOESN`T WANT TO BE BOTHERED WITH ANYTHING AT THIS TIME.
--- NOTE | 2018-08-30 19:31 | NUR ---
PT ASSISTED UP TO BSC. SUPPORTIVE DAUGHTER REMAINS AT BEDSIDE.
--- NOTE | 2018-08-30 19:51 | NUR ---
PT ASSISTED BACK TO RECLINER CHAIR. SHE HAD A VERY LARGE BROWN SOFTLY FORMED STOOL. STATES FEELS "SO MUCH BETTER!" CALL LIGHT IN REACH. ASSESSMENT COMPLETED. VSS. PULSE OX 98% ON OPTIFLOW.
[2018-08-30 20:00] VITALS: BP 96/64
--- NOTE | 2018-08-30 20:12 | NUR ---
PT ASSISTED BACK TO BED AND TO POSITION OF COMFORT. PT STATES SOME DISCOMFORT IN CHEST WALL ARM PIT AREA BILATERALLY. TYLENOL OFFERED/REQUESTED/GIVEN ORDERED.
--- NOTE | 2018-08-30 20:37 | NUR ---
PT DOZING. HOB ELEVATED. PILLOWS UNDER ARMS AND HEELS OFF OF BED. IN VIEW OF ICU STAFF. BODY RELAXED. RR 16/MIN. CALL LIGHT AND BELONGINGS IN REACH.
--- NOTE | 2018-08-30 21:56 | NUR ---
PT INGESTED PO PM MEDICATIONS WITHOUT DIFFICULTY.
--- NOTE | 2018-08-30 22:08 | NUR ---
PT TELLS RESP DEPT THAT SHE DOESN'T WANT BIPAP ON UNTIL AROUND MIDNIGHT.
--- NOTE | 2018-08-30 22:35 | NUR ---
PT ON BIPAP.
--- NOTE | 2018-08-30 23:10 | NUR ---
TYLENOL FOR DISCOMFORT NOTED EARLIER AND RESTORIL FOR SLEEP AT 2130 EFFECTIVE. PT SLEEPING...TOLERATING BIPAP. PULSE OX 93-95% WITH RR 14/MIN.
[2018-08-31] VITALS: BP 94/64
--- NOTE | 2018-08-31 01:04 | NUR ---
ASSISTED UP TO BSC PER PT REQUEST.
--- NOTE | 2018-08-31 01:15 | NUR ---
ASSISTED BACK TO BED. PT HAD A MODERATE AMT OF BROWN MUSHY STOOL.
[2018-08-31 04:00] VITALS: BP 100/57
--- NOTE | 2018-08-31 04:24 | NUR ---
IV IN RAN PAINFUL AND REMOVED. NEW #24 STARTED IN RT FOREARM PER POLICY. PT DENIES DISCOMFORT AND SITE ASYMTPOMATIC DURING ANTIBIOTIC INFUSION.
[2018-08-31 05:14] LABS: ALBUMIN 2.8 gm/dl (3.1-4.5); CREATININE 1.79 mg/dL (0.55-1.02); PHOSPHOROUS 4.7 mg/dL (2.5-4.9); POTASSIUM 4.6 mmol/L (3.5-5.1); TOTAL PROTEIN 6.5 gm/dL (6.4-8.2)
[2018-08-31 05:52] LABS: HEMATOCRIT 30.8 % (37.0-47.0); HEMOGLOBIN 9.2 g/dl (12.0-16.0); MEAN CELL VOLUME 97.2 fl (81.0-99.0); MEAN CORPUSCULAR HGB CONC 29.9 g/dl (33.0-37.0); MEAN PLATELET VOLUME 11.3 fl (9.6-12.3); NUCLEATED RED BLOOD CELL 0.1 10*3/uL (0.0-0.0); NUCLEATED RED BLOOD CELL 0.8 % (0.0-0.0); PLATELET COUNT AUTOMATED 254 10*3/uL (130-400); RED BLOOD COUNT 3.17 10*6/uL (4.10-5.10); RED CELL DISTRI WIDTH 16.9 % (0-14.5); WHITE BLOOD COUNT 17.4 10*3/uL (4.8-10.8)
--- NOTE | 2018-08-31 06:13 | NUR ---
PT WORE BIPAP FROM 2229 TO 344. SHE IS DOZING WHILE ON OPTIFLOW WITH A CURRENT PULSE OX OF 98% AND RR 16/MIN.
[2018-08-31 06:26] LABS: ACANTHOCYTES FEW; POLYCHROMASIA SLIGHT; TOTAL CELLS COUNTED 100 #CELLS
[2018-08-31 06:27] LABS: PLATELET SUFFICIENCY NORMAL (NORMAL)
--- NOTE | 2018-08-31 07:30 | NUR ---
Pt is resting on Opti-flow at 94%. Pt is on 45L and 70%.
[2018-08-31 08:00] VITALS: BP 94/70
--- NOTE | 2018-08-31 08:00 | NUR ---
PLACED UP INTO CHAIR WITH ASSIST TIMES ONE. TOLERATED WELL. DR. CASTRO HERE TO SEE PATIENT. UPDATED ON LABS FROM THIS AM. NO VOICED COMPLAINTS
--- NOTE | 2018-08-31 09:00 | NUR ---
TAKEN OFF OF OPTI-FLOW AND PLACED ON HIGH FLOW NASAL CANNULA 6L. O2 TITRATED UP TO 12L TO KEEP PULSE OX 92%. DENIES ANY SHORTNESS OF BREATH.
--- NOTE | 2018-08-31 11:00 | NUR ---
Pt is resting in a chair on a 12L HFNC at 94%.
[2018-08-31 12:00] VITALS: BP 98/59
--- NOTE | 2018-08-31 14:00 | NUR ---
PLACED BACK TO BED PER REQUEST.
--- NOTE | 2018-08-31 15:00 | NUR ---
Pt is still resting comfortably in bed on 12L HFNC. SpO2 is 93%
[2018-08-31 16:00] VITALS: BP 106/66
--- NOTE | 2018-08-31 19:39 | NUR ---
PT. UP IN CHAIR BACK TO BED WITH ONE ASSIST. HEP LOCK IN RH ASYMPT. LUNGS DIMINISHED BUT CLEAR BILAT, PULSE OX 84% ON 12L HIGH FLOW CHANGED TO OPTI-FLOW 45L/60%, PULSE OX 96% NOW CURRENTLY. ABDOMEN SOFT NONDISTENDED AND NORMO. NO PERIPHERAL EDEMA NOTED. RESP. EASY AND REG, NO DISTRESS. WATCHING TV AT THIS TIME. YULI HERNANDEZ RN
[2018-08-31 20:00] VITALS: BP 105/64
[2018-09-01] VITALS: BP 123/83
[2018-09-01 04:00] VITALS: BP 115/81
[2018-09-01 05:16] LABS: ALBUMIN 2.7 gm/dl (3.1-4.5); CREATININE 1.53 mg/dL (0.55-1.02); POTASSIUM 4.3 mmol/L (3.5-5.1); TOTAL PROTEIN 6.4 gm/dL (6.4-8.2)
[2018-09-01 06:12] LABS: HEMATOCRIT 30.3 % (37.0-47.0); MEAN CELL VOLUME 96.8 fl (81.0-99.0); MEAN CORPUSCULAR HGB 28.8 pg (27.0-31.0); MEAN CORPUSCULAR HGB CONC 29.7 g/dl (33.0-37.0); NUCLEATED RED BLOOD CELL 0.1 10*3/uL (0.0-0.0); NUCLEATED RED BLOOD CELL 0.3 % (0.0-0.0); PLATELET COUNT AUTOMATED 269 10*3/uL (130-400); RED BLOOD COUNT 3.13 10*6/uL (4.10-5.10); RED CELL DISTRI WIDTH 17.2 % (0-14.5); WHITE BLOOD COUNT 17.1 10*3/uL (4.8-10.8)
[2018-09-01 07:36] LABS: PLATELET SUFFICIENCY NORMAL (NORMAL); TOTAL CELLS COUNTED 100 #CELLS
[2018-09-01 08:00] VITALS: BP 111/79
--- NOTE | 2018-09-01 08:00 | NUR ---
AM CARE DONE, PT ALERT AND ORIENTED, PLEASANT, SKIN INTACT, ON OPTIFLO NC AT 45 L UP TO RECLINER AFTER BATH, THEN TO RAD FOR CXR
--- NOTE | 2018-09-01 10:30 | NUR ---
Musical Instruments Assembler in to see patient. Discussed LTAC and patient and daughter who is at the bedside are agreeable. When provided with a list of facilities they chose [facility] as it is closer to their house in [place]. search planner notified.
--- NOTE | 2018-09-01 11:25 | NUR ---
PLACED BACK ON BIPAP AFTER BREAKFAST
[2018-09-01 12:00] VITALS: BP 116/86
--- NOTE | 2018-09-01 12:28 | NUR ---
patient requested referral to [facility] in [place]. Attempted to contact [facility], faxed referral. Waiting on return call, review/acceptance.
--- NOTE | 2018-09-01 15:27 | NUR ---
REMAINS SITTING UP IN RECLINER, HIGH FLOW NC AT 10 L
[2018-09-01] MEDS ORDERED: ATORVASTATIN CA40 M1 PO (15:55)
[2018-09-01] MEDS ORDERED: METOPROLOL SUCC25 M2 PO (15:56)
[2018-09-01] MEDS ORDERED: APRESOLINE10 MG PO (15:56)
[2018-09-01] MEDS ORDERED: Humalog SQ (15:56)
[2018-09-01] MEDS ORDERED: IMDUR SA30 MG PO (15:56)
[2018-09-01] MEDS ORDERED: FUROSEMIDE40 MG PO (15:56)
[2018-09-01 16:00] VITALS: BP 113/86
--- NOTE | 2018-09-01 16:25 | NUR ---
TRANSPORTATION FOR PT SET UP WITH [facility] AT 6PM. ICU NOTIFIED.
--- NOTE | 2018-09-01 18:24 | NUR ---
DC TO [facility]
--- NOTE | 2018-09-01 18:25 | NUR ---
DTR HAS TAKEN HOME ALL BELONGINGS, EXCEPT TEETH WHICH PT HAS IN HER MOUTH
== END 2018-09-01 18:24 | DRG 871 ==
LOC: ED 00:21 → EDHOLD 04:05 → ICCU 04:05
PROVIDERS: Family Medicine; Internal Medicine; Internal Medicine Nephrology; Student in an Organized Health Care Education/Training Program; ADMIT Internal Medicine
PROC: 5A09357 Assistance with Respiratory Ventilation, Less than 24 Consecutive Hours, Continuous Positive Airway Pressure (ICD-10-PCS; principal; 2018-08-26)
PROC: 5A09357 Assistance with Respiratory Ventilation, Less than 24 Consecutive Hours, Continuous Positive Airway Pressure (ICD-10-PCS; 2018-08-27)
PROC: 5A09357 Assistance with Respiratory Ventilation, Less than 24 Consecutive Hours, Continuous Positive Airway Pressure (ICD-10-PCS; 2018-08-28)
PROC: 5A09357 Assistance with Respiratory Ventilation, Less than 24 Consecutive Hours, Continuous Positive Airway Pressure (ICD-10-PCS; 2018-08-29)
PROC: 5A09357 Assistance with Respiratory Ventilation, Less than 24 Consecutive Hours, Continuous Positive Airway Pressure (ICD-10-PCS; 2018-08-31)
PROC: 5A09357 Assistance with Respiratory Ventilation, Less than 24 Consecutive Hours, Continuous Positive Airway Pressure (ICD-10-PCS; 2018-09-01)
DX: A41.9 Sepsis, unspecified organism (principal); J18.9 Pneumonia, unspecified organism; N17.0 Acute kidney failure with tubular necrosis; R65.21 Severe sepsis with septic shock; I50.41 Acute combined systolic (congestive) and diastolic (congestive) heart failure; J96.21 Acute and chronic respiratory failure with hypoxia; I21.4 Non-ST elevation (NSTEMI) myocardial infarction; E44.0 Moderate protein-calorie malnutrition; E87.1 Hypo-osmolality and hyponatremia; I13.0 Hypertensive heart and chronic kidney disease with heart failure and stage 1 through stage 4 chronic kidney disease, or unspecified chronic kidney disease; I42.9 Cardiomyopathy, unspecified; N39.0 Urinary tract infection, site not specified; D64.9 Anemia, unspecified; R10.30 Lower abdominal pain, unspecified; K59.00 Constipation, unspecified; I27.20 Pulmonary hypertension, unspecified; I34.0 Nonrheumatic mitral (valve) insufficiency; R74.0 Nonspecific elevation of levels of transaminase and lactic acid dehydrogenase [LDH]; Z51.5 Encounter for palliative care; Z66 Do not resuscitate; N18.3 Chronic kidney disease, stage 3 (moderate); E83.41 Hypermagnesemia; I48.2 Chronic atrial fibrillation; E11.65 Type 2 diabetes mellitus with hyperglycemia; Z79.4 Long term (current) use of insulin; Z91.048 Other nonmedicinal substance allergy status; Z90.49 Acquired absence of other specified parts of digestive tract; Z90.710 Acquired absence of both cervix and uterus; Z82.49 Family history of ischemic heart disease and other diseases of the circulatory system; Z83.3 Family history of diabetes mellitus; Z79.82 Long term (current) use of aspirin; Z79.899 Other long term (current) drug therapy; Z68.28 Body mass index [BMI] 28.0-28.9, adult

== ENCOUNTER 2018-09-28 01:18 | Emergency (ER) | payer MEDICARE ==
[~2018-09-28] VITALS: Ht 160 cm; Wt 99.1 kg
--- NOTE | ~2018-09-28 | EKG ---
[place], [place] ELECTROCARDIOGRAM REPORT NAME: JUSTINE FUNK UNIT #: [id number] ROOM: DOCTOR: EPIPHANY DRAFT REPORT BIRTHDATE: [address] [facility] Test Date: 2018-09-28 Test Time: 05:08:12 Pat Name: JUSTINE FUNK Department: Room: Gender: F Optical Instrument Repairer: : 1930 Requested By: SCOTT MORELAND Order Number: [id number] Reading MD: Félix Sam Measurements Intervals [place] Rate: 100 P: [place]: QRS: -44 QRSD: 136 T: 84 QT: 392 QTc: 506 Interpretive Statements Atrial fibrillation Left bundle branch block Baseline wander in lead(s) V6 Compared to ECG 08/26/2018 07:00:33 No significant changes Electronically Signed On 09-28-2018 11:57:51 PDT by Félix Sam CM:EKGRPT:ELECTROCARDIOGRAM REPORT [id number] SCOTT COLMENARES DRAFT REPORT SCOTT MORELAND DO
--- NOTE | ~2018-09-28 | EKG ---
[place], [place] ELECTROCARDIOGRAM REPORT NAME: JUSTINE FUNK UNIT #: [id number] ROOM: DOCTOR: EPIPHANY DRAFT REPORT BIRTHDATE: [birth year] [facility] Test Date: 2018-09-28 Test Time: 01:23:38 Pat Name: JUSTINE FUNK Department: Room: Gender: F It Analyst: : 1930 Requested By: SCOTT MORELAND Order Number: [id number] Reading MD: Félix Sam Measurements Intervals [place] Rate: 109 P: [place]: QRS: -52 QRSD: 127 T: 98 QT: 343 QTc: 463 Interpretive Statements Atrial fibrillation with RVR Left bundle branch block Baseline wander in lead(s) V6 Compared to ECG 08/26/2018 07:00:33 No significant changes Electronically Signed On 09-28-2018 11:57:38 PDT by Félix Sam CM:EKGRPT:ELECTROCARDIOGRAM REPORT [id number] SCOTT COLMENARES DRAFT REPORT SCOTT MORELAND DO
[~2018-09-28 01:18] MED LIST changes: +AMLODIPINE BESY10 MG PO; +APRESOLINE10 MG PO; +ATORVASTATIN CA40 M1 PO; +FUROSEMIDE40 MG PO; +Humalog SQ; +IMDUR SA30 MG PO; +METOPROLOL SUCC25 M2 PO
[2018-09-28] MEDS ORDERED: MACROBID100 M1 PO (01:48)
[2018-09-28 01:53] LABS: BASO % 0.2 % (0.0-1.0); EOS # 0.1 10*3/uL (0.0-0.4); EOS % 0.7 % (1.0-4.0); HEMATOCRIT 44.5 % (37.0-47.0); HEMOGLOBIN 13.3 g/dl (12.0-16.0); LYMPH % 18.4 % (27.0-41.0); MEAN CELL VOLUME 98.5 fl (81.0-99.0); MEAN CORPUSCULAR HGB 29.4 pg (27.0-31.0); MEAN CORPUSCULAR HGB CONC 29.9 g/dl (33.0-37.0); MEAN PLATELET VOLUME 10.2 fl (9.6-12.3); MONO # 0.8 10*3/uL (0.1-1.0); MONO % 7.1 % (3.0-9.0); NEUT # 7.9 10*3/uL (2.3-7.9); NEUT % 73.4 % (47.0-73.0); NUCLEATED RED BLOOD CELL 0.2 % (0.0-0.0); PLATELET COUNT AUTOMATED 287 10*3/uL (130-400); RED BLOOD COUNT 4.52 10*6/uL (4.10-5.10); RED CELL DISTRI WIDTH 19.5 % (0-14.5); WHITE BLOOD COUNT 10.7 10*3/uL (4.8-10.8)
[2018-09-28 02:06] LABS: ACT PARTIAL THROMBO TIME 37.8 SECONDS (20.0-32.1); INTERNATIONAL NORM RATIO 1.7 (2.0-3.5)
[2018-09-28 02:18] LABS: ALBUMIN 2.8 gm/dl (3.1-4.5); CREATININE 2.02 mg/dL (0.55-1.02); POTASSIUM 4.3 mmol/L (3.5-5.1); TOTAL PROTEIN 6.7 gm/dL (6.4-8.2)
[2018-09-28 02:20] LABS: TROPONIN I 0.032 ng/ml (<0.045)
[2018-09-28 03:06] LABS: BILIRUBIN NEGATIVE (NEGATIVE); BLOOD TRACE-LYSED (NEGATIVE); CLARITY SL CLOUDY (CLEAR); COLOR YELLOW (YELLOW); GLUCOSE NEGATIVE (NEGATIVE); KETONE NEGATIVE (NEGATIVE); LEUKO ESTERASE NEGATIVE (NEGATIVE); NITRITE NEGATIVE (NEGATIVE); PH 5.5 (5.0-9.0); UROBILINOGEN 0.2 E.U./dl (0.2-1.0)
[2018-09-28 03:19] LABS: BACTERIA 2+
[2018-09-28 04:40] VITALS: BP 106/71
== END 2018-09-28 06:34 | disposition short-term general hospital (02) ==
LOC: ED 01:18
PROVIDERS: Emergency Medicine
DX: K57.32 Diverticulitis of large intestine without perforation or abscess without bleeding (principal); I48.2 Chronic atrial fibrillation; I11.0 Hypertensive heart disease with heart failure; I50.9 Heart failure, unspecified; E11.9 Type 2 diabetes mellitus without complications; Z79.899 Other long term (current) drug therapy; Z79.82 Long term (current) use of aspirin

== ENCOUNTER 2018-10-22 05:36 | Emergency (ER) | payer MEDICARE ==
[~2018-10-22] VITALS: Ht 167.6 cm; Wt 84.8 kg
[~2018-10-22 05:36] MED LIST changes: +MACROBID100 M1 PO
[2018-10-22 05:40] VITALS: BP 111/81
== END 2018-10-22 06:55 | disposition home or self-care (01) ==
LOC: ED 05:36
DX: R04.0 Epistaxis (principal); R05 Cough; I11.0 Hypertensive heart disease with heart failure; I50.9 Heart failure, unspecified; I48.2 Chronic atrial fibrillation; I25.2 Old myocardial infarction; Z91.048 Other nonmedicinal substance allergy status; Z79.2 Long term (current) use of antibiotics; Z79.82 Long term (current) use of aspirin; Z79.899 Other long term (current) drug therapy; Z90.710 Acquired absence of both cervix and uterus; Z90.49 Acquired absence of other specified parts of digestive tract

== ENCOUNTER → 2019-01-13 | Outpatient (CLI) | payer MEDICARE ==
[2019-01-13 09:39] LABS: BASO % 0.4 % (0.0-1.0); EOS # 0.1 10*3/uL (0.0-0.4); EOS % 1.3 % (1.0-4.0); HEMATOCRIT 45.4 % (37.0-47.0); LYMPH # 2.2 10*3/uL (1.3-4.4); LYMPH % 21.6 % (27.0-41.0); MEAN CELL VOLUME 88.2 fl (81.0-99.0); MEAN CORPUSCULAR HGB 27.2 pg (27.0-31.0); MEAN CORPUSCULAR HGB CONC 30.8 g/dl (33.0-37.0); MEAN PLATELET VOLUME 11.3 fl (9.6-12.3); MONO % 9.4 % (3.0-9.0); NEUT # 6.8 10*3/uL (2.3-7.9); PLATELET COUNT AUTOMATED 276 10*3/uL (130-400); RED BLOOD COUNT 5.15 10*6/uL (4.10-5.10); RED CELL DISTRI WIDTH 17.1 % (0-14.5); WHITE BLOOD COUNT 10.2 10*3/uL (4.8-10.8)
[2019-01-13 10:08] LABS: ALBUMIN 3.2 gm/dl (3.1-4.5); CREATININE 2.1 mg/dL (0.55-1.02); PHOSPHOROUS 3.6 mg/dL (2.5-4.9); TOTAL PROTEIN 8.1 gm/dL (6.4-8.2); URIC ACID 6.4 mg/dL (2.6-6.0)
[2019-01-13 11:00] LABS: PTH INTACT 48.8 pg/mL (18.5-88.0); VITAMIN D, 25-HYDROXY 40.9 ng/mL (30-100)
[2019-01-13 15:07] LABS: BILIRUBIN NEGATIVE (NEGATIVE); BLOOD NEGATIVE (NEGATIVE); CLARITY SL CLOUDY (CLEAR); COLOR YELLOW (YELLOW); GLUCOSE TRACE (NEGATIVE); KETONE NEGATIVE (NEGATIVE); LEUKO ESTERASE NEGATIVE (NEGATIVE); NITRITE NEGATIVE (NEGATIVE); PH 5.5 (5.0-9.0); UROBILINOGEN 0.2 E.U./dl (0.2-1.0)
[2019-01-13 15:21] LABS: BACTERIA 1+
[2019-01-13 15:22] LABS: EPITHELIAL CELLS 0-2
[2019-01-13 15:23] LABS: HYALINE CAST 0-2
== END | disposition home or self-care (01) ==
LOC: LAB 09:05
PROVIDERS: Internal Medicine Nephrology
DX: R60.1 Generalized edema (principal); E55.9 Vitamin D deficiency, unspecified; N18.3 Chronic kidney disease, stage 3 (moderate); R80.9 Proteinuria, unspecified; I50.9 Heart failure, unspecified

== ENCOUNTER → 2020-02-15 | Outpatient (CLI) | payer MEDICARE ==
[2020-02-15 09:45] LABS: BASO % 0.4 % (0.0-1.0); EOS # 0.2 10*3/uL (0.0-0.4); EOS % 1.7 % (1.0-4.0); HEMATOCRIT 42.8 % (37.0-47.0); LYMPH # 2.5 10*3/uL (1.3-4.4); LYMPH % 25.9 % (27.0-41.0); MEAN CELL VOLUME 98.8 fl (81.0-99.0); MEAN CORPUSCULAR HGB CONC 30.4 g/dl (33.0-37.0); MEAN PLATELET VOLUME 10.9 fl (9.6-12.3); MONO # 0.9 10*3/uL (0.1-1.0); MONO % 9.3 % (3.0-9.0); NEUT % 62.3 % (47.0-73.0); PLATELET COUNT AUTOMATED 282 10*3/uL (130-400); RED BLOOD COUNT 4.33 10*6/uL (4.10-5.10); RED CELL DISTRI WIDTH 13.2 % (0-14.5); WHITE BLOOD COUNT 9.6 10*3/uL (4.8-10.8)
[2020-02-15 14:15] LABS: ALBUMIN 3.6 gm/dl (3.1-4.5); CREATININE 2.13 mg/dL (0.55-1.02); POTASSIUM 5.1 mmol/L (3.5-5.1); TOTAL PROTEIN 8.2 gm/dL (6.4-8.2)
[2020-02-15 14:23] LABS: THYROID STIM HORMONE (HS) 3.64 uIU/ml (0.358-4.75)
== END | disposition home or self-care (01) ==
LOC: LAB 09:07
PROVIDERS: ATTEND Internal Medicine
DX: I48.0 Paroxysmal atrial fibrillation (principal); R63.8 Other symptoms and signs concerning food and fluid intake; J34.89 Other specified disorders of nose and nasal sinuses; D64.9 Anemia, unspecified; E11.9 Type 2 diabetes mellitus without complications